=== PATIENT | female | born 1990 | race American Indian/Alaskan Native ===

== ENCOUNTER 2019-01-05 18:23 | Emergency (ER) | payer OTHER ==
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
[2019-01-05 20:26] LABS: Basophils # (Auto) 0.1 K/mm3 (0.0-0.1); Basophils % (Auto) 0.9 % (0.0-1.8); Eosinophils # (Auto) 0.1 K/mm3 (0.0-0.4); Eosinophils % (Auto) 0.8 % (0.0-4.3); Hematocrit 38.1 % (30.3-42.9); Hemoglobin 12.7 gm/dl (10.1-14.3); Lymphocytes # (Auto) 2.8 K/mm3 (1.2-5.4); Lymphocytes % (Auto) 42.9 % (13.4-35.0); Mean Corpuscular HGB Conc 33 % (30-34); Mean Corpuscular Volume 88 fl (79-97); Monocytes # (Auto) 0.6 K/mm3 (0.0-0.8); Monocytes % (Auto) 9.8 % (0.0-7.3); Platelet Count 284 K/mm3 (140-440); Red Blood Count 4.33 M/mm3 (3.65-5.03); Red Cell Distribution Width 13.3 % (13.2-15.2)
[2019-01-05 20:30] LABS: Bilirubin,Urine NEG (Negative); Blood,Urine NEG (Negative); Color,Urine Yellow (Yellow); Mucus,Urine FEW /HPF; Protein,Urine <15 mg/dL mg/dL (Negative); RBC,Urine < 1.0 /HPF (0.0-6.0); Urobilinogen,Urine < 2.0 mg/dL (<2.0); WBC,Urine < 1.0 /HPF (0.0-6.0)
--- NOTE | 2019-01-05 21:48 | Ultrasound Report ---
OB ultrasound. 01/05/2019. HISTORY: Vaginal bleeding. FINDINGS: The uterus measures 6.9 x 8.6 cm. The endometrial stripe is thickened measuring 2 cm. An ea rly gestational sac is dated 5 weeks 5 days. Right ovary measures 2.3 x 1.5 x 2.1 cm. Left ovary measures 2.5 x 2.2 x 3.1 cm. Both ovaries contain flow. Small complex ovarian cyst are likely physiologic. IMPRESSION: Early gestational sac dated 5 weeks 5 days. Signer Name: Cullen Chowdhury MD Signed: 01/05/2019 9:43 PM Workstation Name: [id number]
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
[2019-01-06 00:29] VITALS: BP 120/76
== END 2019-01-06 00:27 | disposition home or self-care (01) ==
LOC: ED 18:23
DX: O20.8 Other hemorrhage in early pregnancy (principal); O26.891 Other specified pregnancy related conditions, first trimester; R10.2 Pelvic and perineal pain; R10.32 Left lower quadrant pain; Z3A.01 Less than 8 weeks gestation of pregnancy; V49.9XXA Car occupant (driver) (passenger) injured in unspecified traffic accident, initial encounter; Y93.89 Activity, other specified; Y92.410 Unspecified street and highway as the place of occurrence of the external cause; Y99.8 Other external cause status
CPT/HCPCS: 36415; 76801; 76817; 81001; 84702; 85025; 86850; 86900; 86901